=== PATIENT | female | born 1995 | race Caucasian/White ===

== ENCOUNTER 2020-09-29 19:06 | Emergency (ER) | payer BC, OTHER ==
--- OUTSIDE RECORDS SUMMARY | 2020-09-29 19:13 | XMS REPORT | Continuity of Care Document ---
:1995 Author Organization [facility] t Address [address] [place] [address] Care Team Providers Name Role Phone Faraz Caldwell II Attending Clinician Erlin Ernandez Attending Clinician Jag Arnold Attending Clinician Erlin Ernandez Admitting Clinician Problems Condition Condition Condition Status Onset Resolution Last Treating Co mments Source Name Details Category Date Date Treatment Clinician Date ABCESS ON Diagnosis Active 2018-082019-06-07 Memoria STOMACH/V/ - 16:12:00 l D ABCESS 08:00: [place] ON 00 STOMACH/V/ D Active 06/07/2019 [facility] ADBOMINAL Diagnosis Active 2018-082019-06-09 Memoria WALL 08-07 18:47:00 l ABSCESS, 08:00: [place] CELLULITIS ADBOMINAL 00 ABD W WALL ABSCESS, CELLULITIS ABD W Active 06/07/2019 [facility] KIDNEY Diagnosis Active 2017-2018-04-04 Mem oria STONES 04-04 17:21:00 l KIDNEY 00:00: [place] STONES 00 Active 04/04/2018 [facility] Hematuria, Problem 2018-10-22 M emoria unspecifie 12:52:56 l d [place] Hematuria, unspecifie d 10/22/2018 [place] Cutaneous Problem 2019-06-13 Me moria abscess of 22:26:30 l abdominal [place] wall Cutaneous abscess of abdominal wall 9 [facility] Anxiety Problem Resolve 2020-07-21 Mem oria (finding) d 23:11:11 l Anxiety [place] (finding) Resolved Problem 07/21/2020 Medical [facility] Depressive Problem Resolve 2020-07-21 Memoria disorder d 23:11:11 l (disorder) Levon n Depressive disorder (disorder) Resolved Problem 07/21/2020 Medical [facility] Diabetes Problem Resolve 2020-07-21 Me moria mellitus d 23:11:11 l (disorder) Diabetes He rmann mellitus (disorder) Resolved Problem 07/21/2020 Medical [facility] Family Problem Active 2020-07-21 Memor ia history: 23:11:11 l Hypothyroi Family Herm reno dism history: (context-d Hypothyroi ependent dism category) (context-d ependent category) Active Problem 07/21/2020 Medical [facility] History of Problem Active 2020-07-21 M emoria - 23:11:11 l metabolic History Herm reno disorder of - (context-d metabolic ependent disorder category) (context-d ependent category) Active Problem 07/21/2020 [facility] Hyperglyce Problem Active 2020-07-21 M emoria harmony due to 23:11:11 l type 1 [place] diabetes Hyperglyce mellitus harmony due to (disorder) type 1 diabetes mellitus (disorder) Active Problem 07/21/2020 [facility] Type II Problem Active 2019-06-13 Abdulaziz kingsley diabetes 22:26:30 l mellitus Type II Erum nn uncontroll diabetes ed mellitus (finding) uncontroll ed (finding) Active Problem 06/13/2019 [facility] Diabetes Problem Active 2020-07-21 Mem oria mellitus 23:11:11 l type 1 Diabetes Levon n (disorder) mellitus type 1 (disorder) Active Problem 07/21/2020 [facility] CUTANEOUS Diagnosis Active 2019-06-09 Memoria ABSCESS OF 18:47:00 l ABDOMINAL [place] WALL CUTANEOUS ABSCESS OF ABDOMINAL WALL [facility] Diagnosis Active 2019-06-09 Memoria OF 18:47:00 l ABDOMINAL [place] WALL CELLULITIS OF ABDOMINAL WALL [facility] SEPSIS, Diagnosis Active 2019-06-09 Me moria UNSPECIFIE 18:47:00 l D ORGANISM SEPSIS, Her middleton UNSPECIFIE D ORGANISM Active [facility] History of Past Illness Condition Condition Condition Status Onset Resolution Last Treating Co mments Source Name Details Category Date Date Treatment Clinician Date Strain of Problem 2018-10-22 2018-10-22 Memoria muscle, 04-04 12:52:56 12:52:56 l fascia and Strain 05:00: Herm reno tendon of of muscle, 00 lower fascia and back, tendon of initial lower encounter back, initial encounter 04/04/2018 10/22/2018 [facility] Urinary Problem 2018-0 2018-10-22 2018-10-22 Memoria tract 04-04 12:52:56 12:52:56 l infection, Urinary 05:00: Her middleton site not tract 00 specified infection, site not specified 04/04/2018 10/22/2018 [facility] Allergies, Adverse Reactions, Alerts Allergy Allergy Status Severity Reaction(s) Onset Inactive Treating Comm ents Source Name Type Date Date Clinician sulfa sulfa Active Memoria drugs drugs l [place] vancomyc vancomyc Active Memori a in<sup>1 in<sup>1 l </sup> </sup> [place] Social History Social Habit Start Date Stop Date Quantity Comments Source Social History 2019-06-28 2019-06-28 [facility] marjorie 17:26:15 17:26:15 Smoking Status Start Date Stop Date Source Social History [facility] Medications Ordered Filled Start Stop Current Ordering Indication Dosage Frequency Signature Comments Components Source Medication Medication Date Date Medication? Clinician (SIG) Name Name Regular Yes See Memoria Insulin, 04-19 Instructio l Human 100 16:46: ns, 20 Levon n UNT/ML 00 units Injectable SUB-Q at Solution meals, # [Novolin R] 15 mL, 0 Refill(s), other dicloxacill 2018-08 No Notes: Abdulaziz ikngsley in 250 mg 08-11 Take 1 l oral 02:00: hour [place] capsule 00 before or 2 hours after meal (Same as: Dynapen) Hydroxyzine 2018-08 Yes 25 mg = 1 M emoria Hydrochlori -08 tab, PO, l de 25 MG 01:38: QID, 0 [place] Oral Tablet 00 Refill(s) {2018-08 Yes 1 tab, PO, Memoria (drospireno 1-08 Daily, 0 l ne 3 MG / 01:38: Refill(s) Her middleton Ethinyl 00 Estradiol 0.03 MG Oral Tablet) / 7 (Inert Ingredients 1 MG Oral Tablet) } Pack [Ocella 28 Day] Dicloxacill 2018-08 No 500 mg, Mem oria in 08 Route: PO, l 01:00: Drug form: [place] 00 CAP, ABXQ6H, Dosing Weight 66.2, kg, Start date: 06/10/19 19:00:00 EMISSIONS TESTING TECHNICIAN, Duration: 5 day, Stop date: 06/15/19 13:00:00 EMISSIONS TESTING TECHNICIAN, ABX Indication : Skin/Soft Tissue Infection Nafcillin 2018-08 No 2 gm, Memoria -08 Route: l 00:00: IVPB, [place] 00 ABXQ6H, Dosing Weight 66.2, kg, Start date: 06/10/19 18:00:00 EMISSIONS TESTING TECHNICIAN, Duration: 30 day, Stop date: 07/10/19 12:00:00 EMISSIONS TESTING TECHNICIAN, 0 tramadol 2018-08 Yes 50 mg = 1 Abdulaziz kingsley hydrochlori 1-07 tab, PO, l de 50 MG 22:19: Q6H, PRN Erum nn Oral Tablet 00 Pain, X 5 day, # 20 tab, 0 Refill(s) Dicloxacill 2018-08 No Notes: Abdulaziz kingsley in 500 MG 1-07 Take 1 l Oral 22:18: hour [place] Capsule 00 before or 2 hours after meal (Same as: Dynapen) Dicloxacill 2018-08 Yes 500 mg = 1 Memoria in 500 MG 1-07 cap, PO, l Oral 21:59: Q6H, X 14 [place] Capsule 00 day, # 56 cap, 0 Refill(s) insulin 2018-08 Yes 18 unit, Memori a isophane 1-07 SUB-Q, l (NPH) 100 21:59: Q12H, # 10 He rmann units/mL 00 mL, 0 human Refill(s) recombinant subcutaneou s suspension insulin 2018-08 Yes 15 unit, Memori a lispro 100 1-07 SUB-Q, l units/mL 21:59: TID-Before Her middleton injectable 00 Meals, # solution 10 mL, 0 Refill(s) Lancets 2018-08 Yes 1 box, Memoria 1-07 MISC, l 21:59: Daily, # 1 [place] 00 box, 0 Refill(s) Blood 2018-08 Yes 1 box, Memoria Glucose -07 MISC, l Test Strips 21:59: TID-Before [place] 00 Meals, # 100 strip, 0 Refill(s) Blood 2018-08 Yes 1 ea, Memoria Glucose 08-10 MISC, l Monitor 21:59: Daily, Use Herm reno 00 as directed., # 1 ea, 0 Refill(s) Insulin 2018-08 Yes 1 syr, Memoria Syringes U 07 INJ, l 30 31 ga 21:59: ONCALL, # Herm reno (ultra 00 100 syr, 0 fine) Refill(s) BD 2018-08 Yes 1 ea, Memoria Ultra-Fine 08-10 MISC, l Sushila 21:59: Daily, # [place] Insulin Pen 00 100 ea, 0 [place] 32G Refill(s) 4mm=5/32 inch Magnesium 2018-08 No Notes: Memori a Sulfate 08-10 WASTE: F/P l 18:00: - Sink; E [place] - Municipal Trash Bin potassium 2018-08 No Notes: Memori a chloride 20 08-10 (Same as: l mEq oral 16:45: K-Dur 20) Herm reno tablet, 00 "Do Not extended Crush" release Give with food and full glass of water For patients unable to swallow tablet, dissolve in one half glass of water. Allow about 2 minutes for the tablets to disintegra te. Stir before giving to prepare slurry and administer . Please exclude Patient s with feeding tube less than 14 Icelandic (Dobhoff, J-tube etc) and pediatric and patients. Potassium 2018-08 No Notes: Memori a Chloride - Infuse at l 13:00: a rate of [place] 10 mEq/hr. (Same as: KCL) Potassium 2018-08 No Notes: Memori a Chloride - (Same as: l 12:46: K-Dur 20) [place] 00 "Do Not Crush" Give with food and full glass of water For patients unable to swallow tablet, dissolve in one half glass of water. Allow about 2 minutes for the tablets to disintegra te. Stir before giving to prepare slurry and administer . Please exclude Patient s with feeding tube less than 14 Icelandic (Dobhoff, J-tube etc) and pediatric and patients. Ketorolac 2018-08 No 4 days. Abdulaziz kingsley -07 l 09:12: [place] 00 Ativan 2018-08 No Notes: Memoria 1-07 (Same as: l 09:10: Ativan) [place] 00 Saline 2018-08 No Notes: Memoria Flush 0.9% 08-10 Same as: l 06:00: BD [place] 00 Posiflush Sterile Vancomycin 2018-08 No 2000 mg: Me moria 08-10 infuse l 04:00: over 2.5 [place] 00 hours For adult patients only: Round to nearest 250 mg per Medical Staff approval MEDICATION WASTE Product Size: 1000 mg Product Wasted: ___ mg Insulin 2018-08 No Notes: Memoria Lispro 08-10 (Same as: l 02:01: Humalog) [place] 00 Roll in palms of hands gently; Do not shake vigorously . WASTE: F/P - Black; E - Municipal Trash Bin Stable for 28 days at room temperatur e. Expires in days from ____Date Insulin 2018-08 No Notes: Memoria Lispro 08-10 (Same as: l 01:44: Humalog) [place] 00 Roll in palms of hands gently; Do not shake vigorously . WASTE: F/P - Black; E - Municipal Trash Bin Stable for 28 days at room temperatur e. Expires in days from ____Date Saline 2018-08 No Notes: Memoria Flush 0.9% 08-09 Same as: l 23:55: BD [place] 00 Posiflush Sterile Saline 2018-08 No Notes: Memoria Flush 0.9% 08-09 Same as: l 22:00: BD [place] 00 Posiflush Sterile Vancomycin 2018-08 No 2000 mg: Me moria 08-09 infuse l 19:31: over 2.5 [place] 00 hours For adult patients only: Round to nearest 250 mg per Medical Staff approval MEDICATION WASTE Product Size: 1000 mg Product Wasted: ___ mg Lidocaine 2018-08 No Notes: Memori a Hydrochlori 08-09 (Same as: l de 10 MG/ML 19:00: Xylocaine) [place] Injectable 00 Solution Saline 2018-08 No Notes: Memoria Flush 0.9% 08-09 Same as: l 18:11: BD [place] 00 Posiflush Sterile Insulin 2018-08 No 15 unit, Memori a regular 08-09 Route: l 17:30: SUB-Q, [place] 00 TID-Before Meals, Dosing Weight 66.2, kg, Start date: 06/09/19 11:30:00 EMISSIONS TESTING TECHNICIAN, Duration: 30 day, Stop date: 07/09/19 7:30:00 EMISSIONS TESTING TECHNICIAN Insulin 2018-08 No Notes: Memoria Lispro - (Same as: l 17:30: Humalog) Roll in palms of hands gently; Do not shake vigorously . WASTE: F/P - Black; E - Municipal Trash Bin Stable for 28 days at room temperatur e. Expires in days from ____Date Vancomycin 2018-08 No 2000 mg: Me moria - infuse l 16:00: over 2.5 [place] 00 hours For adult patients only: Round to nearest 250 mg per Medical Staff approval MEDICATION WASTE Product Size: 1000 mg Product Wasted: ___ mg insulin, 2018-08 No 14 unit, Memor ia isophane 08-09 Route: l 15:45: SUB-Q, [place] 00 BID, Dosing Weight 66.2, kg, Start date: 06/09/19 9:45:00 EMISSIONS TESTING TECHNICIAN, Duration: 30 day, Stop date: 07/09/19 9:00:00 EMISSIONS TESTING TECHNICIAN Dextrose 2018-08 No 12.5 gm, Memor ia 50% Syringe 08-09 25 mL, l 15:37: Route: [place] 00 IVP, Drug Form: INJ, Dosing Weight 66.2, kg, PRN, PRN Blood Glucose Results, Start date: 06/09/19 9:37:00 EMISSIONS TESTING TECHNICIAN, Duration: 30 day, Stop date: 07/09/19 9:36:00 EMISSIONS TESTING TECHNICIAN, 0 Glucagon 2018-08 No 1 mg, Memoria 08-09 Route: IM, l 15:37: Drug form: [place] 00 PDR/INJ, PRN, Dosing Weight 66.2, kg, PRN Blood Glucose Results, Start date: 06/09/19 9:37:00 EMISSIONS TESTING TECHNICIAN, Duration: 30 day, Stop date: 07/09/19 9:36:00 EMISSIONS TESTING TECHNICIAN, 0 Insulin 2018-08 No Notes: Memoria Lispro -06 (Same as: l 15:37: Humalog) [place] 00 Roll in palms of hands gently; Do not shake vigorously . WASTE: F/P - Black; E - Municipal Trash Bin Stable for 28 days at room temperatur e. Expires in days from ____Date Benadryl 2018-08 No 25 mg, 1 Memor ia - tab, l 14:07: Route: PO, [place] 00 Drug form: TAB, TID, Dosing Weight 66.2, kg, PRN Itching, Start date: 06/09/19 8:07:00 EMISSIONS TESTING TECHNICIAN, Duration: 30 day, Stop date: 07/09/19 8:06:00 EMISSIONS TESTING TECHNICIAN, 0 Pepcid 2018-08 No Notes: Memoria -06 (Same as: l 02:29: Pepcid) [place] 00 Can be dilute in 5-10cc NS IVP: Slow IV push over at least 2 minutes. Benadryl 2018-08 No Notes: Memoria -06 (Same as: l 02:29: Benadryl) [place] 00 Solu-Medrol 2018-08 No Notes: Abdulaziz kingsley -06 (Same l 02:29: as:Solu-ME [place] 00 DROL, A-Methapre d) Lactated 2018-08 No 1,000 mL, Abdulaziz kingsley Ringers IV 1-05 Rate: 100 l 1,000 mL 15:42: ml/hr, [place] 00 Infuse over: 10 hr, Route: IV, Dosing Weight 66.2 kg, Total Volume: 1,000, Start date: 06/08/19 9:42:00 EMISSIONS TESTING TECHNICIAN, Duration: 30 day, Stop date: 07/08/19 9:41:00 EMISSIONS TESTING TECHNICIAN, 1.73, m2, 0 Potassium 2018-08 No Notes: Memori a Chloride 1-05 (Same as: l 15:41: KCL) [place] 00 Infuse no faster than 10 mEq/hr if given peripheral ly. sodium 2018-08 No Notes: Memoria phosphate 1-05 Infuse l 15:41: over 4 [place] 00 hour. Do not infuse phosphorou s concurrent ly in the same line as TPN or IVF that contains calcium. For double lumen central lines, phosphorou s may be infused in a separate lumen from TPN. potassium 2018-08 No Notes: Memori a phosphate 1-05 (Same as: l 15:41: K [place] Phosphate. ) Do not infuse phosphorou s concurrent ly in the same line as TPN or IVF that contains calcium. For double lumen central lines, phosphorou s may be infused in a separate lumen from TPN. 1 mMol phoshate has 1.47 mEq potassium Infuse over 4 hours potassium 2018-08 No Notes: Memori a phosphate-s -05 (Same as: l odium 15:41: Phos-NaK) [place] phosphate 00 Each 1.5 250 mg-280 gm pkt has mg-160 mg 250mg oral powder phosphorou for s. Mix reconstitut w/2.5oz ion water and stir. Magnesium 2018-08 No Notes: Memori a Sulfate 08-08 WASTE: F/P l 15:41: - Sink; E [place] - Municipal Trash Bin Magnesium 2018-08 No Notes: Memori a Oxide - (Same as: l 15:41: Mag-Ox [place] 00 400) Magnesium oxide [id number]=[id number] g elemental magnesium Dose=____m g magnesium oxide (___mg elemental magnesium) Calcium 2018-08 No Notes: Memoria Gluconate - WASTE: F/P l 15:41: - Sink; E - Municipal Trash Bin Calcium 2018-08 No Notes: Memoria Carbonate - (Same As: l 500 MG 15:41: Tums) [place] Chewable 00 Calcium Tablet Carbonate 500 mg = 200 mg elemental calcium Dose = mg calcium carbonate ( mg elemental calcium) Insulin 2018-08 No Notes: Memoria regular 100 1-05 (Same as: l unit + 15:39: Humulin R, Erum nn Sodium 00 NovoLIN R) Chloride Roll in 0.9% palms of (titrate) hands 99 mL gently; Do not shake vigorously . WASTE: F/P - Black; E - Municipal Trash Bin Stable for 31 days at room temperatur e Expires in days from ____Date Dextrose 2018-08 No 25 gm, 50 Abdulaziz kingsley 50% Syringe 1-05 mL, Route: l 15:39: IVP, Drug Form: INJ, Dosing Weight 66.2, kg, PRN, PRN Blood Glucose Results, Start date: 06/08/19 9:39:00 EMISSIONS TESTING TECHNICIAN, Duration: 30 day, Stop date: 07/08/19 9:38:00 EMISSIONS TESTING TECHNICIAN, 0 rocuronium 2018-08 No Route: IV, Gregorio emoria (ANES) 08-08 Drug form: l 13:10: INJ, ONCE, Stop date: 06/08/19 7:10:00 EMISSIONS TESTING TECHNICIAN acetaminoph 2018-08 No Route: IV, Memoria en (ANES) 08-08 Drug form: l 13:10: INJ, ONCE, Stop date: 06/08/19 7:10:00 EMISSIONS TESTING TECHNICIAN dexamethaso 2018-08 No Route: IV, Memoria ne (ANES) 08-08 Drug form: l 13:10: INJ, ONCE, Stop date: 06/08/19 7:10:00 EMISSIONS TESTING TECHNICIAN cefepime 2018-08 No Route: IV, Mem oria (ANES) 08-08 Drug form: l 13:10: INJ, ONCE, Stop date: 06/08/19 7:10:00 EMISSIONS TESTING TECHNICIAN metoprolol 2018-08 No Route: IV, M emoria (ANES) 08-08 Drug form: l 13:10: INJ, ONCE, Stop date: 06/08/19 7:10:00 EMISSIONS TESTING TECHNICIAN ondansetron 2018-08 No Route: IV, Memoria (ANES) 08-08 Drug form: l 13:10: INJ, ONCE, Stop date: 06/08/19 7:10:00 EMISSIONS TESTING TECHNICIAN ketOROLAC 2018-08 No IV, ONCE Abdulaziz kingsley (ANES) - l 13:10: glycopyrrol 2018-08 No Route: IV, Memoria ate (ANES) 08-08 Drug form: l 13:10: INJ, ONCE, Stop date: 06/08/19 7:10:00 EMISSIONS TESTING TECHNICIAN neostigmine 2018-08 No Route: IV, Memoria (ANES) - Drug form: l 13:10: INJ, ONCE, Stop date: 06/08/19 7:10:00 EMISSIONS TESTING TECHNICIAN succinylcho 2018-08 No Route: IV, Memoria line (ANES) 08-08 Drug form: l 13:05: INJ, ONCE, Stop date: 06/08/19 7:05:00 EMISSIONS TESTING TECHNICIAN propofol 2018-08 No Route: IV, Mem oria (ANES) 08-08 Drug form: l 13:05: INJ, ONCE, Stop date: 06/08/19 7:05:00 EMISSIONS TESTING TECHNICIAN lidocaine 2018-08 No Route: IV, Me moria (ANES) 08-08 Drug form: l 13:05: INJ, ONCE, Stop date: 06/08/19 7:05:00 EMISSIONS TESTING TECHNICIAN midazolam 2018-08 No Route: IV, Me moria (ANES) 1- Drug form: l 13:00: SOLN, [place] 00 ONCE, Stop date: 06/08/19 7:00:00 EMISSIONS TESTING TECHNICIAN fentaNYL 2018-08 No Route: IV, Mem oria (ANES) 08-08 Drug form: l 13:00: INJ, ONCE, Stop date: 06/08/19 7:00:00 EMISSIONS TESTING TECHNICIAN vancomycin 2018-08 No Route: IV, M emoria (ANES) 1000 08-08 Drug form: l mg 12:35: INJ, Start date: 06/08/19 6:35:00 EMISSIONS TESTING TECHNICIAN, Stop date: 06/08/19 7:35:00 EMISSIONS TESTING TECHNICIAN Lactated 2018-08 No Route: IV, Mem oria Ringers 1-05 Total l Injection 12:00: Volume: Erum nn IV (ANES) 00 1,000, 1000 mL Start date: 06/08/19 6:00:00 EMISSIONS TESTING TECHNICIAN, Stop date: 06/08/19 7:00:00 EMISSIONS TESTING TECHNICIAN Calcium 2018-08 No 1,000 mL, Memor ia Chloride 05 Rate: 75 l 0.0014 11:50: ml/hr, MEQ/ML / 00 Infuse Potassium over: 13.3 Chloride hr, Route: 0.004 IV, Dosing MEQ/ML / Weight Sodium 66.2 kg, Chloride Total 0.103 Volume: MEQ/ML / 1,000, Sodium Start Lactate date: 0.028 06/08/19 MEQ/ML 5:50:00 Injectable EMISSIONS TESTING TECHNICIAN, Solution Duration: 30 day, Stop date: 07/08/19 5:49:00 EMISSIONS TESTING TECHNICIAN, 1.73, m2, 0 cefepime 2018-08 No Notes: Memoria -05 (Same As: l 08:00: Maxipime) MEDICATION WASTE Product Size: 1000 mg Product Wasted: ___ mg Metformin 2018-08 No 500 mg = 1 Me moria hydrochlori 1-05 tab, PO, l de 500 MG 06:32: Before Levon n Oral Tablet 00 Dinner, # 30 tab, 0 Refill(s) Hydroxyzine 2018-08 No 25 mg = 1 M emoria Hydrochlori -05 tab, PO, l de 25 MG 06:32: QID, PRN Erum nn Oral Tablet 00 Agitation, # 40 tab, 0 Refill(s) influenza 2018-08 No Notes: Memori a virus 08-08 (Same as: l vaccine, 06:29: Fluzone Levon n inactivated 06 Quadrivale nt, Fluarix Quadrivale nt) For patients 6 - 35 months of age (0.5 mL IM) For 3 years of age and older (0.5 mL IM) Shake well before use Dextrose 2018-08 No 12.5 gm, Memor ia 50% Syringe 08-08 25 mL, l 06:17: Route: IVP, Drug Form: INJ, Dosing Weight 65.909, kg, PRN, PRN Blood Glucose Results, Start date: 06/08/19 0:17:00 EMISSIONS TESTING TECHNICIAN, Duration: 30 day, Stop date: 07/08/19 0:16:00 EMISSIONS TESTING TECHNICIAN, 0 Glucagon 2018-08 No 1 mg, Memoria 08-08 Route: IM, l 06:17: Drug form: [place] 00 PDR/INJ, PRN, Dosing Weight 65.909, kg, PRN Blood Glucose Results, Start date: 06/08/19 0:17:00 EMISSIONS TESTING TECHNICIAN, Duration: 30 day, Stop date: 07/08/19 0:16:00 EMISSIONS TESTING TECHNICIAN, 0 Bisacodyl 2018-08 No Notes: Memori a 08-08 (Same As: l 06:17: Dulcolax, [place] 00 Bisco-Lax) Ondansetron 2018-08 No Notes: Abdulaziz kingsley 08-08 (Same as: l 06:17: Zofran) MEDICATION WASTE Product Size: 4 mg Product Wasted: ___ mg Melatonin 2018-08 No Notes: Memori a 08-08 (Same as: l 06:17: Melatonin) [place] Acetaminoph 2018-08 No Notes: Do M emoria en 08-08 not exceed l 06:17: 4 gm/day. [place] 00 (Same as: Tylenol) Calcium 2018-08 No 1,000 mL, Memor ia Chloride 08-08 1,000 l 0.0014 06:11: ml/hr, [place] MEQ/ML / 00 Infuse Potassium Over: 1 Chloride hr, Route: 0.004 IV, 1,000, MEQ/ML / Drug form: Sodium INJ, ONCE, Chloride Priority: 0.103 STAT, MEQ/ML / Dosing Sodium Weight Lactate 65.909 kg, 0.028 Start MEQ/ML date: Injectable 06/08/19 Solution 0:11:00 EMISSIONS TESTING TECHNICIAN, Stop date: 06/08/19 0:11:00 EMISSIONS TESTING TECHNICIAN, 0 Sodium 2018-08 No 1,000 mL, Memori a Chloride 08-08 Rate: 250 l 0.9% IV 06:06: ml/hr, [place] 1,000 mL 00 Infuse over: 4 hr, Route: IV, Dosing Weight 65.909 kg, Total Volume: 1,000, When Finger stick blood glucose values remain ABOVE 250 mg/dL administer until BG is less than 250 mg/dL., Start date: 06/08/19 0:06:00 EMISSIONS TESTING TECHNICIAN, Duratio... D5W 2NS 2018-08 No 1,000 mL, Mem oria 1,000 mL 08-08 Rate: 250 l 06:06: ml/hr, [place] 00 Infuse over: 4 hr, Route: IV, Dosing Weight 65.909 kg, Total Volume: 1,000, Start date: 06/08/19 0:06:00 EMISSIONS TESTING TECHNICIAN, Duration: 30 day, Stop date: 07/08/19 0:05:00 EMISSIONS TESTING TECHNICIAN, 1.74, m2, 0 Insulin 2018-08 No Notes: Memoria (regular) - (Same as: l Titrate IV 06:06: Humulin R, H ermann additive 00 NovoLIN R) 100 unit + Roll in Sodium palms of Chloride hands 0.9% gently; Do (titrate) not shake 99 mL vigorously . WASTE: F/P - Black; E - Municipal Trash Bin Stable for 31 days at room temperatur e Expires in days from ____Date Dextrose 2018-08 No 12.5 gm, Memor ia 50% Syringe 1-05 25 mL, l 06:06: Route: [place] 00 IVP, Drug Form: INJ, Dosing Weight 65.909, kg, PRN, PRN Blood Glucose Results, Start date: 06/08/19 0:06:00 EMISSIONS TESTING TECHNICIAN, Duration: 30 day, Stop date: 07/08/19 0:05:00 EMISSIONS TESTING TECHNICIAN, 0 Glucagon 2018-08 No 1 mg, Memoria 1-05 Route: IM, l 06:06: Drug form: [place] 00 PDR/INJ, PRN, Dosing Weight 65.909, kg, PRN Blood Glucose Results, Start date: 06/08/19 0:06:00 EMISSIONS TESTING TECHNICIAN, Duration: 30 day, Stop date: 07/08/19 0:05:00 EMISSIONS TESTING TECHNICIAN, 0 Potassium 2018-08 No Notes: Memori a Chloride 1-05 (Same as: l 06:06: KCL) Infuse no faster than 10 mEq/hr if given peripheral ly. Magnesium 2018-08 No Notes: Memori a Sulfate 1-05 WASTE: F/P l 06:06: - Sink; E - Municipal Trash Bin potassium 2018-08 No Notes: Memori a phosphate 1-05 (Same as: l 06:06: K Phosphate. ) Do not infuse phosphorou s concurrent ly in the same line as TPN or IVF that contains calcium. For double lumen central lines, phosphorou s may be infused in a separate lumen from TPN. 1 mMol phoshate has 1.47 mEq potassium Infuse over 4 hours Vancomycin 2018- No 2000 mg: Me moria 1-05 infuse l 04:00: over 2.5 [place] 00 hours For adult patients only: Round to nearest 250 mg per Medical Staff approval MEDICATION WASTE Product Size: 1000 mg Product Wasted: ___ mg Calcium 2018-08 No Route: IV, Abdulaziz kingsley Chloride 1-05 ONCE, l 0.0014 03:43: Dosing [place] MEQ/ML / 00 Weight Potassium 65.909 kg, Chloride Start 0.004 date: MEQ/ML / 06/07/19 Sodium 21:43:00 Chloride EMISSIONS TESTING TECHNICIAN, Stop 0.103 date: MEQ/ML / 06/07/19 Sodium 21:43:00 Lactate EMISSIONS TESTING TECHNICIAN 0.028 MEQ/ML Injectable Solution Insulin 2018-08 No Notes: Memoria Glargine -05 (Same as: l 100 UNT/ML 03:30: Lantus) Do H ermann Injectable 00 not hold Solution insulin [Lantus] without contacting prescriber WASTE: F/P - Black; E - Municipal Trash Bin "single patient use only" Stable for 28 days at room temperatur e Expires in days from ____Date Tramadol 2018-08 No Notes: Not Mem oria 08-08 to exceed l 03:05: 400mg/day. [place] (Same As: Ultram) Hydromorpho 2018-08 No Notes: Abdulaziz kingsley ne 08-08 Same as: l 03:05: Dilaudid Dextrose 2018-08 No 12.5 gm, Memor ia 50% Syringe 08-08 25 mL, l 03:05: Route: [place] 00 IVP, Drug Form: INJ, Dosing Weight 65.909, kg, PRN, PRN Blood Glucose Results, Start date: 06/07/19 21:05:00 EMISSIONS TESTING TECHNICIAN, Duration: 30 day, Stop date: 07/07/19 21:04:00 EMISSIONS TESTING TECHNICIAN, 0 Glucagon 2018-08 No 1 mg, Memoria 08-08 Route: IM, l 03:05: Drug form: [place] 00 PDR/INJ, PRN, Dosing Weight 65.909, kg, PRN Blood Glucose Results, Start date: 06/07/19 21:05:00 EMISSIONS TESTING TECHNICIAN, Duration: 30 day, Stop date: 07/07/19 21:04:00 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 WASTE: F/P - Black; E - Municipal Trash Bin Stable for 28 days at room temperatur e. Expires in days from ____Date Potassium 2018-08 No Notes: Memori a Chloride -05 (Same as: l 03:03: K-Dur 20) "Do Not Crush" Give with food and full glass of water For patients unable to swallow tablet, dissolve in one half glass of water. Allow about 2 minutes for the tablets to disintegra te. Stir before giving to prepare slurry and administer . Please exclude Patient s with feeding tube less than 14 Icelandic (Dobhoff, J-tube etc) and pediatric and patients. potassium 2018-08 No Notes: Memori a phosphate-s -05 (Same as: l odium 03:03: Phos-NaK) [place] phosphate 00 Each 1.5 250 mg-280 gm pkt has mg-160 mg 250mg oral powder phosphorou for s. Mix reconstitut w/2.5oz ion water and stir. potassium 2018-08 No Notes: Memori a phosphate -05 (Same as: l 03:03: K 00 Phosphate. ) Do not infuse phosphorou s concurrent ly in the same line as TPN or IVF that contains calcium. For double lumen central lines, phosphorou s may be infused in a separate lumen from TPN. 1 mMol phoshate has 1.47 mEq potassium Infuse over 4 hours sodium 2018-08 No Notes: [facility] phosphate -05 Infuse l 03:03: over 4 hour. Do not infuse phosphorou s concurrent ly in the same line as TPN or IVF that contains calcium. For double lumen central lines, phosphorou s may be infused in a separate lumen from TPN. Magnesium 2018-08 No Notes: Memori a Sulfate 08-08 WASTE: F/P l 03:03: - Sink; E - Municipal Trash Bin Magnesium 2018-08 No Notes: [facility]ori a Oxide 08-08 (Same as: l 03:03: Mag-Ox 400) Magnesium oxide 190ph=863n g elemental magnesium Dose=____m g magnesium oxide (___mg elemental magnesium) Calcium 2018-08 No Notes: [facility] Gluconate 08-08 WASTE: F/P l 03:03: - Sink; E - Municipal Trash Bin Metronidazo 2018-08 No Notes: Abdulaziz kingsley le 08-08 (Same as: l 03:02: Flagyl) Avoid alcohol. 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 Zofran 2018-08 No 4 mg, [facility] 08-08 Route: l 02:48: IVP, Drug form: INJ, ONCE, Dosing Weight 65.909, kg, Start date: 06/07/19 20:48:00 EMISSIONS TESTING TECHNICIAN, Stop date: 06/07/19 20:48:00 EMISSIONS TESTING TECHNICIAN Sodium 2018-08 No 1,000 mL, [facility] a Chloride 04 1000 l 0.9% 23:54: ml/hr, [place] (Bolus) IV 00 Infuse Over: 1 hr, Route: IV, 1,000, Drug form: INJ, ONCE, Priority: STAT, Dosing Weight 65.909 kg, Start date: 06/07/19 17:54:00 EMISSIONS TESTING TECHNICIAN, Stop date: 06/07/19 17:54:00 EMISSIONS TESTING TECHNICIAN, 0 Vancomycin 2018-08 No 2000 mg: Me moria - infuse l 23:40: over 2.5 hours For adult patients only: Round to nearest 250 mg per Medical Staff approval MEDICATION WASTE Product Size: 1000 mg Product Wasted: ___ mg cefepime 2018-08 No Notes: [facility] 08-07 (Same As: l 23:40: Maxipime) MEDICATION WASTE Product Size: 1000 mg Product Wasted: ___ mg Sodium 2018-08 No 1,000 mL, Memori a Chloride 1-04 1000 l 0.9% 20:28: ml/hr, [place] (Bolus) IV 00 Infuse Over: 1 hr, Route: IV, 1,000, Drug form: INJ, ONCE, Priority: STAT, Dosing Weight 65.909 kg, Start date: 06/07/19 14:28:00 EMISSIONS TESTING TECHNICIAN, Stop date: 06/07/19 14:28:00 EMISSIONS TESTING TECHNICIAN, 0 Zofran 2018-08 No Notes: [facility] 08-07 (Same as: l 20:28: Zofran) [place] 00 MEDICATION WASTE Product Size: 4 mg Product Wasted: ___ mg Cyclobenzap No 10 mg = 1 M emoria rine 04-05 tab, PO, l hydrochlori 01:43: TID, PRN Hao rmreno de 10 MG 00 for spasm, Oral Tablet # 30 tab, [Flexeril] 0 Refill(s) Cephalexin No 500 mg = 1 M emoria 500 MG Oral 04-05 cap, PO, l Capsule 01:43: BID, X 7 Levon n [Keflex] 00 day, # 14 cap, 0 Refill(s) Vital Signs Vital Name Observation Time Observation Value Comments Source Systolic (mm Hg) 2020-04-19 16:21:00 Abdulaziz [facility] [place] Diastolic (mm Hg) 2020-04-19 16:21:00 [facility] orial [place] Heart Rate 2020-04-19 16:21:00 [facility] [place] Height 2020-04-19 16:21:00 160.02 cm [facility] [place] Weight 2020-04-19 16:21:00 [facility] [place] BMI Calculated 2020-04-19 16:21:00 [facility] [place] Systolic (mm Hg) 2020-01-05 15:10:00 Abdulaziz rial [place] Diastolic (mm Hg) 2020-01-05 15:10:00 [facility] [place] Heart Rate 2020-01-05 15:10:00 [facility] [place] Respitory Rate 2020-01-05 15:10:00 [facility] [place] Height 2020-01-05 15:10:00 160.02 cm [facility] [place] Weight 2020-01-05 15:10:00 [facility] [place] BMI Calculated 2020-01-05 15:10:00 [facility] [place] Temperature Oral (F) 2020-01-05 15:10:00 98.8 F [facility] [place] Systolic (mm Hg) 2019-09-22 16:01:00 Abdulaziz [facility] [place] Diastolic (mm Hg) 2019-09-22 16:01:00 [facility] [place] Heart Rate 2019-09-22 16:01:00 [facility] [place] Temperature Oral (F) 2019-09-22 16:01:00 98 F [facility] [place] Height 2019-09-22 16:01:00 160.02 cm [facility] [place] Weight 2019-09-22 16:01:00 [facility] [place] BMI Calculated 2019-09-22 16:01:00 [facility] [place] Systolic (mm Hg) 2019-07-21 19:34:00 Abdulaziz rial [place] Diastolic (mm Hg) 2019-07-21 19:34:00 [facility] [place] Heart Rate 2019-07-21 19:34:00 [facility] [place] Temperature Oral (F) 2019-07-21 19:34:00 98.1 F [facility] [place] Height 2019-07-21 19:34:00 160.02 cm [facility] [place] Weight 2019-07-21 19:34:00 [facility] [place] BMI Calculated 2019-07-21 19:34:00 [facility] [place] Systolic (mm Hg) 2019-06-28 17:19:00 Abdulaziz rial [place] Diastolic (mm Hg) 2019-06-28 17:19:00 [facility] [place] Heart Rate 2019-06-28 17:19:00 [facility] [place] Temperature Oral (F) 2019-06-28 17:19:00 98.2 F [facility] [place] Height 2019-06-28 17:19:00 160.02 cm [facility] [place] Weight 2019-06-28 17:19:00 [facility] [place] BMI Calculated 2019-06-28 17:19:00 [facility] [place] Temperature Oral (F) 2019-06-11 13:35:00 98.0 F [facility] [place] Heart Rate 2019-06-11 13:35:00 [facility] [place] Respitory Rate 2019-06-11 13:35:00 [facility] [place] Systolic (mm Hg) 2019-06-11 13:35:00 Abdulaziz rial [place] Diastolic (mm Hg) 2019-06-11 13:35:00 [facility] [place] Temperature Oral (F) 2019-06-11 10:00:00 98.1 F [facility] [place] Heart Rate 2019-06-11 10:00:00 [facility] [place] Respitory Rate 2019-06-11 10:00:00 [facility] [place] Systolic (mm Hg) 2019-06-11 10:00:00 Abdulaziz [facility] [place] Diastolic (mm Hg) 2019-06-11 10:00:00 [facility] [place] Temperature Oral (F) 2019-06-11 06:00:00 98.1 F [facility] [place] Heart Rate 2019-06-11 06:00:00 [facility] [place] Respitory Rate 2019-06-11 06:00:00 [facility] [place] Systolic (mm Hg) 2019-06-11 06:00:00 Abdulaziz [facility] [place] Diastolic (mm Hg) 2019-06-11 06:00:00 [facility] [place] Height 2019-06-08 06:31:00 160.02 cm [facility] [place] Weight 2019-06-08 06:31:00 [facility] [place] BMI Calculated 2019-06-08 06:31:00 [facility] [place] Height 2019-06-07 20:21:00 162.56 cm [facility] [place] BMI Calculated 2019-06-07 20:21:00 [facility] [place] Weight 2019-06-07 20:21:00 [facility] [place] Systolic (mm Hg) 2018-04-05 01:50:00 Abdulaziz [facility] [place] Diastolic (mm Hg) 2018-04-05 01:50:00 [facility] [place] Temperature Oral (F) 2018-04-05 01:50:00 98 F [facility] [place] Respitory Rate 2018-04-05 01:50:00 [facility] [place] Heart Rate 2018-04-05 01:50:00 [facility] [place] Height 2018-04-04 21:30:00 160.02 cm [facility] [place] BMI Calculated 2018-04-04 21:30:00 [facility] [place] Weight 2018-04-04 21:30:00 [facility] [place] Respitory Rate 2018-04-04 21:30:00 [facility] [place] Temperature Oral (F) 2018-04-04 21:30:00 98.2 F [facility] [place] Systolic (mm Hg) 2018-04-04 21:30:00 Abdulaziz rial [place] Diastolic (mm Hg) 2018-04-04 21:30:00 [facility] [place] Heart Rate 2018-04-04 21:30:00 [facility] [place] Procedures Procedure Date / Time Performing Clinician Source Performed Eye examination 2019-08-04 06:00:00 [facility] [place] PAP smear 2019-04-19 05:00:00 [facility] [place] preparation<sup>1</sup> App[facility]ectomy [facility] [place] Cholecyst[facility] [place] Drainage of abscess [facility] [place] Excision of pilonidal sinus Abdulaziz rial [place] Encounters Start End Encounter Admission Attending Care Care Encounter Source Date/Time Date/Time Type Type Clinicians Facility Department ID 2020-07-19 2020-07-19 Outpatient Paulette [facility] [id number] 14:45:00 14:45:00 Edward 08 Faraz 2020-07-19 2020-07-19 Outpatient [facility] [id number] 13:30:00 13:30:00 Edward 07 [place] 2020-04-23 2020-04-24 Outpatient [facility] [id number] 14:33:07 14:33:07 06 2020-04-19 2020-04-19 Outpatient Paulette [facility] [id number] 11:15:00 23:59:59 Edward 06 [place] 2020-01-05 2020-01-05 Outpatient Paulette [facility] [id number] 10:15:00 23:59:59 Edward 05 [place] 2020-01-05 2020-01-05 Outpatient Paulette [facility] [id number] 10:15:00 10:15:00 Edward 04 [place] 2019-12-08 2019-12-08 Outpatient Paulette [facility] [id number] 11:45:00 11:45:00 Edward 03 [place] 2019-09-23 2019-09-24 Outpatient [facility] [id number] 07:49:00 07:49:00 2019-09-22 2019-09-22 Outpatient Paulette [facility] [id number] 10:00:00 23:59:59 Ed [place] 2019-07-22 2019-07-23 Outpatient [facility] [id number] 11:10:53 11:10:53 03 2019-07-21 2019-07-21 Outpatient Paulette, [facility] [id number] 13:30:00 23:59:59 Edward [place] 2019-06-28 2019-06-28 Outpatient Paulette, [facility] [id number] 11:15:00 23:59:59 Edward Faraz 2019-06-07 2019-06-11 Outpatient Fernandoibaburt, [facility]PL MH[facility] [id number] 14:03:52 10:59:00 Fransico Alexyschaz 2019-06-07 2019-06-07 Inpatient E [facility]BL MED [id number] [facility]BL 20:46:00 19:37:00 2018-04-04 2018-04-04 ARIANNE Hadley [facility] [id number] 16:19:00 20:53:00 [place] Rm Results Test Description Test Time Test Comments Results Result Comments Source CHEM PANEL 2020-04-20 91 [facility] 20:22:00 CHEM PANEL 2020-04-20 12 [facility] [place] nn 20:22:00 CHEM PANEL 2020-04-20 0.60 [facility] [place] [facility] 20:22:00 CHEM PANEL 2020-04-20 128 [facility] [place] nn 20:22:00 CHEM PANEL 2020-04-20 148 [facility] [place] nn 20:22:00 CHEM PANEL 2020-04-20 140 [facility] [place] nn 20:22:00 CHEM PANEL 2020-04-20 3.8 [facility] [place] nn 20:22:00 CHEM PANEL 2020-04-20 109 [facility] [place] [facility] 20:22:00 CHEM PANEL 2020-04-20 24 [facility] [place] nn 20:22:00 CHEM PANEL 2020-04-20 9.6 [facility] [place] [facility] 20:22:00 CHEM PANEL 2020-04-20 6.8 [facility] [place] [facility] 20:22:00 CHEM PANEL 2020-04-20 4.2 [facility] [place] [facility] 20:22:00 CHEM PANEL 2020-04-20 2.6 [facility] [place] [facility] 20:22:00 CHEM PANEL 2020-04-20 1.6 [facility] [place] [facility] 20:22:00 CHEM PANEL 2020-04-20 0.4 [facility] [place] nn 20:22:00 CHEM PANEL 2020-04-20 48 [facility] [place] nn 20:22:00 CHEM PANEL 2020-04-20 15 [facility] [place] nn 20:22:00 CHEM PANEL 2020-04-20 12 [facility] [place] nn 20:22:00 SPECIAL CHEMISTRY 2020-04-20 4.6 [facility] [place] 20:22:00 CHEM PANEL 2019-06-10 91 [facility] [place] nn 22:26:00 CHEM PANEL 2019-06-10 4 [facility] [place] nn 22:26:00 CHEM PANEL 2019-06-10 0.44 [facility] [place] nn 22:26:00 CHEM PANEL 2019-06-10 145 [facility] [place] [facility] 22:26:00 CHEM PANEL 2019-06-10 3.6 [facility] [place] [facility] 22:26:00 CHEM PANEL 2019-06-10 110 [facility] [place] nn 22:26:00 CHEM PANEL 2019-06-10 28 [facility] [place] nn 22:26:00 CHEM PANEL 2019-06-10 10.6 [facility] [place] nn 22:26:00 CHEM PANEL 2019-06-10 8.3 [facility] [place] nn 22:26:00 CHEM PANEL 2019-06-10 143 [facility] [place] nn 22:26:00 CHEM PANEL 2019-06-10 2.4 [facility] [place] nn 22:26:00 CHEM PANEL 2019-06-10 151 [facility] [place] nn 11:04:00 CHEM PANEL 2019-06-10 1.5 [facility] [place] [facility] 11:04:00 HEMATOLOGY 2019-06-10 9.9 [facility] [place] [facility] 11:04:00 HEMATOLOGY 2019-06-10 3.68 [facility] [place] nn 11:04:00 HEMATOLOGY 2019-06-10 10.8 [facility] [place] nn 11:04:00 HEMATOLOGY 2019-06-10 31.0 [facility] [place] nn 11:04:00 HEMATOLOGY 2019-06-10 84.4 [facility] [place] nn 11:04:00 HEMATOLOGY 2019-06-10 11:04:00 Test Item Value Reference Range Interpretation Comme nts MCH (test code = MCH) 29.4 pg 27.0-31.0 [facility] RljmaivIAVHAIRSST7634-15-90 11:04:0034.9[facility] HermannHEMATOLOGY 2019-06-10 11:04:0013.0[facility] PukxycvZNGCMHONMM4673-40-63 11:04:51136Sdvrhkik XyzorvaJDYGNBISWW6219-08-12 11:04:008.2[facility] HermannCHEM IYRWF0299-28-86 11:04:29002Arzqijlt HermannCHEM JSAEE7457-01-35 11:04:006[facility]annCHEM ZSUGP2826-35-54 11:04:000.37[facility]annCHEM SXFVZ3887-46-91 11:04:36565 [facility]annCHEM YWKRI3038-61-03 11:04:003.0[facility] HermannCHEM PANEL 2019-06-10 11:04:06063Xwpvzuxz HermannCHEM HELOE3595-67-31 11:04:0027[facility]annCHEM ESVDM4434-60-30 11:04:0010.0[facility] HermannCHEM YOQFJ5170-94-39 11:04:007.9[facility] ChshyowMRDGMQSANOFE8434-22-23 04:14:003.1[facility] [place] CHEM KEBNQ7217-35-78 17:32:001.25[facility] DwsbgdbVIROMBLLSB8889-82-20 17:32:00 56.7[facility] ZpiyjkzVLPQXNGIYL8692-59-57 17:32:002.2[facility] HermannTOXICOLOGY 2019-06-09 17:32:00 Test Item Value Reference Range Interpretation Comments Vanco Tr TND (test code = Vanco Tr 1000 1 TND) [facility] HermannCHEM UGCPA1982-74-82 09:50:001.8[facility] HermannCHEM PANEL 2019-06-09 09:50:002.0[facility] UjzsnarFRWWFUZLLYBW3071-40-45 09:50:0011.0 [facility] VtlvbtpPAMFGOCITIOF7808-66-03 09:50:91890Lvqdnhfg HermannELECTROLYTES 2019-06-09 09:50:004[facility] VsthomeIIBMPAEQQKRD1790-71-89 09:50:000.52[facility] LjmefxzQTMOBAKAWTRC0897-57-90 09:50:92433Csfcdcmi SwepgpfJCKSFDUFDSEP8661-89-25 09:50:36755Hsrnqbvi DvprqhjARHRUXCTFQMQ4376-44-56 09:50:0022[facility] EPKJNXYSQHUU8817-77-43 09:50:008.5[facility] AufmwqyCWIBTGSZIGFI6550-10-04 09:50:84237Rmyauvxy YljcjaaQYFDUWKBUU1963-71-11 09:50:0012.5[facility] ZZVEMQNSTE3037-17-62 09:50:004.06[facility] YplqpbbVWNXHGHOGQ7407-18-56 09:50:00 11.9[facility] UisclbuPYYEXNTDTE8650-68-64 09:50:0034.2[facility] HermannHEMATOLOGY 2019-06-09 09:50:0084.3[facility] DldjusfOMSRUTABOQ7930-31-91 09:50:00 Test Item Value Reference Range Interpretation Comments MCH (test code = MCH) 29.2 pg 27.0-31.0 [facility] HniriqhFKLRIWOMPV5340-47-49 09:50:0034.6[facility] HermannHEMATOLOGY 2019-06-09 09:50:0012.8[facility] RzepbfsJTRDHXOVZI6378-56-36 09:50:007.7[facility] FbzfwkcIQHFLTNIPO8507-53-42 09:50:29733Yrmueunb QzfzbxqKRIODLNFKS7283-42-12 09:50:00Normal (06/09/19 3:50 AM)[facility] OrdsemgSLZKWUHYMM9919-48-68 09:50:00See Note 2(06/09/19 3:50 AM)[facility] KubovmqXXNRGKVITX1863-03-30 09:50:0086.6 [facility] XnwykatPTGMJZBGDX3909-40-35 09:50:008.3[facility] HermannHEMATOLOGY 2019-06-09 09:50:004.9[facility] GficgsoDRLPRXMZPE9306-89-37 09:50:000.2[facility] AxrwpuqFUFOYULVYN9225-91-76 09:50:0010.8[facility] AfpjaglVODNPZHFFQ3942-15-43 09:50:001.0[facility] MkwamfpSVOMVHZYAF8110-30-62 09:50:000.6[facility] HermannCHEM AFKKO7079-24-64 15:03:003.38[facility] HermannCHEM NBOJJ0173-15-95 15:03:002.6 [facility]CEFAZOLIN:SUSC:PT:ISOLATE:ORDQN:UPL1869-83-44 12:41:00 Staphylococcus aureusMemorial HermannURINE ODBP7410-15-83 11:58:00Negative (06/08/19 5:58 AM)[facility] HermannCHEM PDMDX7411-35-94 10:38:002.26[facility] KmpbjqnZPCIESNBGE4025-39-14 10:38:00 Test Item Value Reference Range Interpretation Comments PT (test code = PT) 14.4 s 12.0-14.7 [facility] TjyryhbQDYTFXDHMX1236-57-29 10:38:00 Test Item Value Reference Range Interpretation Comments PTT (test code = PTT) 29.6 s 22.9-35.8 [facility] ArixkesYEYKWPYMWS7218-78-53 10:38:00 Test Item Value Reference Range Interpretation Comments INR (test code = INR) 1.14 1 0.85-1.17 [facility]annSPECIAL PJJDIPEHK0864-84-34 10:38:0011.1[facility] [place] BACTERIAL - DFDYDFIS7536-57-74 07:57:00Negative (06/08/19 1:57 AM)[facility] HermannCHEM JDYWX6236-02-33 07:57:004.19[facility] HermannCHEM KSARL7138-49-18 07:57:003.2[facility] HermannCHEM RDRYU3656-09-43 03:13:006.7[facility] HermannCHEM ADDSD5668-12-54 03:13:002.8[facility] HermannCHEM OPKUH3161-64-75 03:13:0037 [facility]annCHEM YUDUV5378-06-60 03:13:0061[facility] HermannCHEM PANEL 2019-06-08 03:13:0094[facility] HermannCHEM GFCAO5059-41-51 03:13:000.6[facility] HermannCHEM MRDRD8529-37-64 03:13:00 Test Item Value Reference Range Interpretation Comments B/C Ratio (test code = B/C Ratio) 9 1 6-25 [facility]annCHEM PGAGH9409-57-84 03:13:003.9[facility] HermannCHEM PANEL 2019-06-08 03:13:00 Test Item Value Reference Range Interpretation Comments A/G Ratio (test code = A/G Ratio) 0.7 1 0.7-1.6 [facility]annCHEM NXGMF1806-01-72 03:13:001.6[facility] HermannHEMATOLOGY 2019-06-08 03:13:0014.9[facility] LclbwfpGXAOSRBHMZ1417-38-85 03:13:004.82[facility] ZvkpmnqLBIXWRTTJP5683-43-03 03:13:0013.9[facility] GxqggmlYVXZEPHMDA5524-08-94 03:13:0041.3[facility] IokyanwXMXXSGSFVJ0645-73-21 03:13:0085.7[facility] [place] PXOHGDVDWG6166-98-65 03:13:00 Test Item Value Reference Range Interpretation Comments MCH (test code = MCH) 28.8 pg 27.0-31.0 [facility] VethamrPDNWNYDCBN4892-61-32 03:13:0033.7[facility] HermannHEMATOLOGY 2019-06-08 03:13:0012.6[facility] HbzjjqwVTIBSYSDUE6580-83-95 03:13:20881Dcwbehkz HhpcxjwUJAKTCAZQB0966-39-27 03:13:007.5[facility] LbgstcbBWNQCMKSEM8954-62-17 03:13:0082.2[facility] FgqrsmgSZMCTEAEZA8168-24-42 03:13:008.8[facility] HGJLWUVQQE2010-73-74 03:13:006.4[facility] QjiujhwKMUTOVNXEQ6744-45-21 03:13:002.2 [facility] TenlkidXCICAQWWFK9386-07-16 03:13:000.4[facility] HermannHEMATOLOGY 2019-06-08 03:13:0012.3[facility] XdoehyzEOAYCKNPDP3656-57-37 03:13:001.3[facility] ZglxxmmQUSNCLWCPD4554-61-59 03:13:001.0[facility] SasgqxzAHUYLVNFTX2405-95-32 03:13:000.3[facility] VguvkryUGBSXQYIIE9354-78-00 03:13:000.1[facility] HermannCHEM DLULK4670-36-76 23:43:000.26[facility] HermannCHEM LEHMJ4655-69-59 21:28:001.7 [facility] CncwxmtHNDEFXYPQSAXG6467-42-63 21:28:00Negative *NA*(06/07/19 3:28 PM) [facility] EjvvdqnKSCSHCWIGH6338-39-18 21:28:0083.8[facility] HermannHEMATOLOGY 2019-06-07 21:28:009.1[facility] QvmxhpiHBMDEKPWDU7933-73-43 21:28:005.3[facility] SlkhmnbDRJONJXHZQ9345-91-51 21:28:001.6[facility] TxzuwblOIKNLPSCKZ9387-92-11 21:28:000.2[facility] SowrebwJLSFAHDYJU8373-71-55 21:28:0013.8[facility] [place] JEOHJWXOED4230-13-10 21:28:001.5[facility] PjzkqcdJUEHYZVZIS8963-11-61 21:28:000.9 [facility] HabglcmTIVURFLVBL1585-35-83 21:28:000.3[facility] HermannCHEM PANEL 2018-04-04 23:48:003.9[facility] HermannCHEM UNUQU5054-29-47 23:48:00 Test Item Value Reference Range Interpretation Comments B/C Ratio (test code = B/C Ratio) 15 1 6-25 [facility]annCHEM URWQJ8894-42-83 23:48:0013.9[facility] HermannCHEM PANEL 2018-04-04 23:48:00 Test Item Value Reference Range Interpretation Comments A/G Ratio (test code = A/G Ratio) 1.1 1 0.7-1.6 [facility]annCHEM TGYNE9404-19-88 23:48:000.5[facility]annCHEM PANEL 2018-04-04 23:48:0016[facility] HermannCHEM VWTNJ8593-98-84 23:48:0068[facility]annCHEM SXLYR5917-14-03 23:48:0029[facility]annCHEM PDWGE9523-61-16 23:48:008.1[facility]annCHEM DKUSO9816-54-48 23:48:004.2[facility]annCHEM YRAFB0518-09-80 23:48:009.4[facility]annCHEM IGRRG7868-55-17 23:48:0025 [facility]annCHEM PGBKA3418-81-45 23:48:27500Jvfimpzm HermannCHEM PANEL 2018-04-04 23:48:38933Acjofirx HermannCHEM PKZCM8974-69-87 23:48:003.9[facility]annCHEM UBQOX4958-99-65 23:48:000.55[facility] HermannCHEM FZPMN4556-04-30 23:48:71838Ndnanucm HermannCHEM VVCVR1344-23-30 23:48:008[facility] HermannCHEM CAZUF3935-65-48 23:48:49632Vcyjcnuw MbahagiNJSGVHNUUO4856-89-23 23:48:007.3 [facility] IucspjfASAUWOEAMK3147-48-83 23:48:0034.8[facility] HermannHEMATOLOGY 2018-04-04 23:48:91646Jqsewvha OtfejihFZVXPMBOUU0822-70-74 23:48:0012.9[facility] FaucjapNLQRIPBOQK2681-24-28 23:48:00 Test Item Value Reference Range Interpretation Comments MCH (test code = MCH) 29.9 pg 27.0-31.0 [facility] MgjxoqiFIECGACKYD6223-86-00 23:48:0011.7[facility] HermannHEMATOLOGY 2018-04-04 23:48:0014.8[facility] CfmhfgxVSBJDTWXIX2745-83-85 23:48:004.95[facility] RjgltbwNBONAFDXOX2367-11-02 23:48:0085.9[facility] OohsqvfMGUIPIVBMH0310-46-58 23:48:0042.5[facility] AgpqupfHCFFLLHFPS8067-53-88 23:48:000.2[facility] [place] CMBPZAJGDE1647-31-79 23:48:000.1[facility] ZikdausDFMHAWZDOE8478-10-74 23:48:000.8 [facility] ZvkpkulDIBVVCXQIR4500-40-35 23:48:0047.5[facility] HermannHEMATOLOGY 2018-04-04 23:48:005.1[facility] PddodetKNZYWUAIOJ2983-88-64 23:48:005.5[facility] IooyrfsIWAYCYXWHS2755-68-15 23:48:000.8[facility] BgdgziuXUVFHACMRR1206-36-56 23:48:001.4[facility] FzxvyyePMBHVHLHHI8331-77-83 23:48:006.7[facility] FQMLDIORQY1268-44-64 23:48:0043.6[facility] [place] CEFAZOLIN:SUSC:PT:ISOLATE:ORDQN:XVZ8932-99-42 23:16:00Escherichia coliMemorial HermannURINE AND SUZDK7886-63-97 23:16:002[facility]UR[facility] AND STOOL 2018-04-04 23:16:00Negative (04/04/18 6:16 PM)[facility] STOOL 2018-04-04 23:16:00Negative *NA*(04/04/18 6:16 PM)[facility] STOOL 2018-04-04 23:16:00 Test Item Value Reference Range Interpretation Comments UA pH (test code = UA pH) 5.0 1 5.0-8.0 [facility] [id number] 23:16:003[facility] [id number] 23:16:0013[facility] [id number] 23:16:00 Negative (04/04/18 6:16 PM)[facility] [id number] 23:16:00Trace *ABN*(04/04/18 6:16 PM)[facility] [id number] 23:16:0050 [facility] [id number] 23:16:00Slight *ABN*(04/04/18 6:16 PM) [facility] [id number] 23:16:00Yellow *NA*(04/04/18 6:16 PM) [facility] [id number] 23:16:00 Test Item Value Reference Range Interpretation Comments UA Spec Grav (test code = UA Spec 1.020 1 Grav) [facility] [id number] 23:16:00Negative (04/04/18 6:16 PM)[facility]
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
[2020-09-29 23:01] VITALS: TEMP 98.5; O2SAT 100
[2020-09-29 23:02] VITALS: BP 115/73
== END 2020-09-29 21:52 | disposition home or self-care (01) ==
LOC: ER 19:06
DX: M23.91 Unspecified internal derangement of right knee (principal); V49.49XA Driver injured in collision with other motor vehicles in traffic accident, initial encounter; E11.9 Type 2 diabetes mellitus without complications; Z79.4 Long term (current) use of insulin; Z88.2 Allergy status to sulfonamides
CPT/HCPCS: 99284